=== PATIENT | female | born 1985 | race American Indian/Alaskan Native ===

== ENCOUNTER 2020-06-05 11:29 | Emergency (ER) | payer MEDICAID, OTHER ==
[2020-06-05 11:36] VITALS: BP 143/94
--- NOTE | 2020-06-05 14:13 | Emergency Department Report ---
ED Asthma HPI - General Chief Complaint: Adult Asthma Stated Complaint: ASTHMA Time Seen by Provider: 06/05/20 14:05 Source: patient Mode of arrival: Ambulatory Limitations: No Limitations - History of Present Illness Initial Comments: 34-year-old -Togolese female presents to the emergency room stating she is having intermittent asthma flareups. Patient states that she tried to go to her primary care office with did not have anything available till July. Patient states that she is almost out of her albuterol inhaler and has been using it more than usual. Patient denies any fever chills no chest pain no lightheadedness no nausea no vomiting or diarrhea. Onset/Timin -: week(s) Asthma History: childhood onset, history of prior ED visit Treatments Prior to Arrival: inhaled bronchodilator - Related Data Current Asthma Therapy: inhaled bronchodilator Previous Rx's Medication Instructions Recorded Last Taken Type Albuterol Sulfate [Proventil Hfa] 6.7 gm IH TID PRN #1 hfa.aer.ad 05/01/20 Unknown Rx Albuterol Sulfate [Albuterol 0.63% 0.63 mg IH TID PRN 1 Days #1 box 06/05/20 Unknown Rx NEBS] Albuterol Sulfate [Proair 90 mcg IH QID PRN #1 aer.pow.ba 06/05/20 Unknown Rx Respiclick] Beclomethasone Dipropionate [Qvar 10.6 gm IH BID 1 Days #1 hfa.aeroba 06/05/20 Unknown Rx Redihaler] Prednisone [predniSONE 10 mg 10 mg PO .TAPER #1 tab.ds.pk 06/05/20 Unknown Rx (6-Day Pack, 21 Tabs)] Allergies Allergy/AdvReac Type Severity Reaction Status Date / Time No Known Allergies Allergy Unverified 05/01/20 09:56 ED Review of Systems ROS: Stated complaint: ASTHMA Other details as noted in HPI Comment: All other systems reviewed and negative ED Past Medical Hx - Past Medical History Hx Asthma: Yes - Surgical History Past Surgical History?: No - Social History Smoking Status: Never Smoker - Medications Home Medications: Home Medications Medication Instructions Recorded Confirmed Last Taken Type Albuterol Sulfate [Proventil Hfa] 6.7 gm IH TID PRN #1 hfa.aer.ad 05/01/20 Unknown Rx Albuterol Sulfate [Albuterol 0.63% 0.63 mg IH TID PRN 1 Days #1 box 06/05/20 Unknown Rx NEBS] Albuterol Sulfate [Proair 90 mcg IH QID PRN #1 aer.pow.ba 06/05/20 Unknown Rx Respiclick] Beclomethasone Dipropionate [Qvar 10.6 gm IH BID 1 Days #1 hfa.aeroba 06/05/20 Unknown Rx Redihaler] Prednisone [predniSONE 10 mg 10 mg PO .TAPER #1 tab.ds.pk 06/05/20 Unknown Rx (6-Day Pack, 21 Tabs)] ED Physical Exam - General Limitations: No Limitations General appearance: alert, in no apparent distress - Head Head exam: Present: atraumatic, normocephalic - Eye Eye exam: Present: normal appearance - ENT ENT exam: Present: mucous membranes moist - Neck Neck exam: Present: normal inspection - Respiratory Respiratory exam: Present: normal lung sounds bilaterally. Absent: respiratory distress, wheezes, chest wall tenderness, accessory muscle use - Cardiovascular Cardiovascular Exam: Present: tachycardia - GI/Abdominal GI/Abdominal exam: Present: soft, normal bowel sounds - Neurological Exam Neurological exam: Present: alert, oriented X3, normal gait - Psychiatric Psychiatric exam: Present: normal affect, normal mood - Skin Skin exam: Present: warm, dry, intact, normal color. Absent: rash ED Course Vital Signs 06/05/20 11:33 Temperature 98.1 F Pulse Rate 100 H Respiratory 8 L Rate Blood Pressure 143/94 O2 Sat by Pulse 97 Oximetry ED Medical Decision Making - Medical Decision Making 34-year-old -Togol[place] female presents to the emergency room stating she is having intermittent asthma flareups. Patient states that she tried to go to her primary care office with did not have anything available till July. Patient states that she is almost out of her albuterol inhaler and has been using it more than usual. Patient denies any fever chills no chest pain no lightheadedness no nausea no vomiting or diarrhea. Discussed with patient that her lung exam is within normal limits. I discussed the patient I will will refill her medications and placed on a steroid pack and a maintenance inhaler. I discussed with patient that she needs to follow-up with a primary care provider. I have listed several below for her convenience. Critical care attestation.: If time is entered above; I have spent that time in minutes in the direct care of this critically ill patient, excluding procedure time. ED Disposition Clinical Impression: Asthma Qualifiers: Asthma severity: mild Asthma persistence: intermittent Asthma complication type: unspecified Qualified Code(s): J45.20 - Mild intermittent asthma, uncomplicated Disposition: TO HOME OR SELFCARE Is pt being admited?: No Does the pt Need Aspirin: No Condition: Stable Instructions: Asthma (ED) Additional Instructions: Please complete prednisone as prescribed use your Qvar inhaler as prescribed take your albuterol as needed. Follow-up with a primary care provider. Prescriptions: Albuterol Sulfate [Albuterol 0.63% NEBS] 0.63 mg IH TID PRN 1 Days #1 box PRN Reason: Wheezing Prednisone [predniSONE 10 mg (6-Day Pack, 21 Tabs)] 10 mg PO .TAPER #1 tab.ds.pk Albuterol Sulfate [Proair Respiclick] 90 mcg IH QID PRN #1 aer.pow.ba PRN Reason: Wheezing Beclomethasone Dipropionate [Qvar Redihaler] 10.6 gm IH BID 1 Days #1 hfa.aeroba Referrals: PRIMARY MD ANA M [Primary Care Provider] - 3-5 Days DEBBY ARRINGTON MD [Referring] - 3-5 Days MESSI KENNEDY JR, MD [Staff Physician] - 3-5 Days CHRISTOPHER MARTINEZ MD [Staff Physician] - 3-5 Days
== END 2020-06-05 15:22 | disposition home or self-care (01) ==
LOC: ED 11:29
DX: J45.909 Unspecified asthma, uncomplicated (principal); Z79.899 Other long term (current) drug therapy
CPT/HCPCS: 99281

== ENCOUNTER 2020-09-29 13:25 | Emergency (ER) | payer MEDICAID | END 2020-09-29 15:00 | disposition left against medical advice (07) | LOC: ED 13:25 | DX: R06.00 Dyspnea, unspecified (principal); Z53.21 Procedure and treatment not carried out due to patient leaving prior to being seen by health care provider ==

== ENCOUNTER 2020-12-30 10:58 | Emergency (ER) | payer MEDICAID ==
[2020-12-30 11:22] VITALS: BP 148/101
--- NOTE | 2020-12-30 11:26 | Emergency Department Report ---
Chief Complaint: Medical Clearance Stated Complaint: ABUETEROL SOLUTION INHALER - HPI History of Present Illness: 35-year-old -[place] female presents to the emergency room requesting refills on her albuterol inhaler and nebulizer treatment. Patient states she has been out of it for a week. Patient denies any shortness of breath wheezing or any distress at this time. Patient states she has been trying to get it filled at her primary care provider which is the [place] but not having much success. - Exam Physical Exam: Gen: alert oriented NAD Cardic: regular rate and rhythm no murmurs appreciated Resp: Clear to auscultation bilateral no wheezing no rales or rhonchi. Abdomen: Soft nontender nondistended normal bowel sounds. Ambulatory without difficulties MSE screening note: Focused history and physical exam performed. Due to findings the following was ordered: 35-year-old -[place] female presents to the emergency room requesting refills on her albuterol inhaler and nebulizer treatment. Patient states she has been out of it for a week. Patient denies any shortness of breath wheezing or any distress at this time. Patient states she has been trying to get it filled at her primary care provider which is the [place] but not having much success. Referral to urgent care and her primary care provider for patient. ED Disposition for MSE Disposition: Z- MED SCREENING EXAM-LEFT Is pt being admited?: No Does the pt Need Aspirin: No Condition: Stable Additional Instructions: Discussed with patient that she will need to follow-up at her urgent care or primary care clinic for refills on her albuterol medication. Patient is stable at this time. Referrals: CHRISTOPHER MARTINEZ MD [Staff Physician] - 3-5 Days
== END 2020-12-30 11:31 | disposition left against medical advice (07) ==
LOC: ED 10:58
DX: Z76.0 Encounter for issue of repeat prescription (principal); Z53.21 Procedure and treatment not carried out due to patient leaving prior to being seen by health care provider

== ENCOUNTER 2022-01-10 08:29 | Emergency (ER) | payer MEDICAID ==
[2022-01-10 08:52] VITALS: BP 143/88
--- NOTE | 2022-01-10 09:41 | XRay Report ---
LEFT KNEE 4 VIEW(S) INDICATION / CLINICAL INFORMATION: pain sp fall COMPARISON: None available. FINDINGS: BONES / JOINT(S): No acute fracture or subluxation. No significant arthritis. SOFT TISSUES: No significant abnormality. ADDITIONAL FINDINGS: None. Signer Name: Stu Tate MD Signed: 01/10/2022 9:36 AM Workstation Name: [id number]
--- NOTE | 2022-01-10 09:46 | Emergency Department Report ---
ED Lower Extremity HPI - General Chief Complaint: Extremity Injury, Lower Stated Complaint: KNEE TROUBLE Time Seen by Provider: 01/10/22 08:58 Source: patient Mode of arrival: Ambulatory Limitations: No Limitations - History of Present Illness Initial Comments: Patient is a 36-year-old -Tajik female that comes to the ER complaining of left knee pain. This occurred after she fell. She reports a popping sensation. She is ambulatory to the ER. Neurovascularly intact. Patient denies any other injury. She is taking [id number] pain medicines at home with no relief. MD Complaint: knee injury -: Gradual, days(s) Injury: Knee: Left Type of Injury: blunt Place: home Severity: mild Improves With: nothing Worsens With: movement Context: direct blow Associated Symptoms: snap/pop sensation, swelling - Related Data Previous Rx's Medication Instructions Recorded Last Taken Type Albuterol Sulfate [Proventil Hfa] 6.7 gm IH TID PRN #1 hfa.aer.ad 05/01/20 Unknown Rx Albuterol Sulfate [Albuterol 0.63% 0.63 mg IH TID PRN 1 Days #1 box 06/05/20 Unknown Rx NEBS] Albuterol Sulfate [Proair 90 mcg IH QID PRN #1 aer.pow.ba 06/05/20 Unknown Rx Respiclick] Beclomethasone Dipropionate [Qvar 10.6 gm IH BID 1 Days #1 hfa.aeroba 06/05/20 Unknown Rx Redihaler] Prednisone [predniSONE 10 mg 10 mg PO .TAPER #1 tab.ds.pk 06/05/20 Unknown Rx (6-Day Pack, 21 Tabs)] Allergies Allergy/AdvReac Type Severity Reaction Status Date / Time aspirin AdvReac Anaphylaxis Verified 01/10/22 08:52 ED Review of Systems ROS: Stated complaint: KNEE TROUBLE Other details as noted in HPI Comment: All other systems reviewed and negative ED Past Medical Hx - Past Medical History Previous Medical History?: Yes Hx Asthma: Yes - Surgical History Past Surgical History?: No - Family History Family history: no significant - Social History Smoking Status: Never Smoker Substance Use Type: None - Medications Home Medications: Home Medications Medication Instructions Recorded Confirmed Last Taken Type Albuterol Sulfate [Proventil Hfa] 6.7 gm IH TID PRN #1 hfa.aer.ad 05/01/20 Unknown Rx Albuterol Sulfate [Albuterol 0.63% 0.63 mg IH TID PRN 1 Days #1 box 06/05/20 Unknown Rx NEBS] Albuterol Sulfate [Proair 90 mcg IH QID PRN #1 aer.pow.ba 06/05/20 Unknown Rx Respiclick] Beclomethasone Dipropionate [Qvar 10.6 gm IH BID 1 Days #1 hfa.aeroba 06/05/20 Unknown Rx Redihaler] Prednisone [predniSONE 10 mg 10 mg PO .TAPER #1 tab.ds.pk 06/05/20 Unknown Rx (6-Day Pack, 21 Tabs)] ED Physical Exam - General Limitations: No Limitations General appearance: alert, in no apparent distress - Head Head exam: Present: atraumatic, normocephalic - Eye Eye exam: Present: normal appearance - ENT ENT exam: Present: mucous membranes moist - Neck Neck exam: Present: normal inspection - Respiratory Respiratory exam: Present: normal lung sounds bilaterally. Absent: respiratory distress - Cardiovascular Cardiovascular Exam: Present: regular rate, normal rhythm. Absent: systolic murmur, diastolic murmur, rubs, gallop - GI/Abdominal GI/Abdominal exam: Present: soft, normal bowel sounds - Extremities Exam Extremities exam: Present: normal inspection - Expanded Lower Extremity Exam Left Knee exam: Present: swelling, effusion - Back Exam Back exam: Present: normal inspection - Neurological Exam Neurological exam: Present: alert, oriented X3 - Psychiatric Psychiatric exam: Present: normal affect, normal mood - Skin Skin exam: Present: warm, dry, intact, normal color. Absent: rash ED Course Vital Signs 01/10/22 08:50 Temperature 98.8 F Pulse Rate 99 H Respiratory 16 Rate Blood Pressure 143/88 [Left] O2 Sat by Pulse 98 Oximetry ED Lower Extremity MDM - Radiology Data Radiology results: report reviewed, image reviewed nap - Medical Decision Making X-ray normal. Patient neurovascularly intact. Full range of motion of the knee. Patient does have small effusion of the left knee. Immobilizer and crutches. Patient being discharged home with discharge plan of care including diet, activity, medications and follow-up. She understands she needs to see orthopedics for further evaluation. Vital Signs 01/10/22 08:50 Temperature 98.8 F Pulse Rate 99 H Respiratory 16 Rate Blood Pressure 143/88 [Left] O2 Sat by Pulse 98 Oximetry - Differential Diagnosis ro fx Critical care attestation.: If time is entered above; I have spent that time in minutes in the direct care of this critically ill patient, excluding procedure time. ED Disposition Clinical Impression: Fall Qualifiers: Encounter type: initial encounter Qualified Code(s): W19.XXXA - Unspecified fall, initial encounter Knee pain Qualifiers: Chronicity: acute Laterality: left Qualified Code(s): M25.562 - Pain in left knee Disposition: 01 HOME / SELF CARE / HOMELESS Is pt being admited?: No Does the pt Need Aspirin: No Condition: Stable Instructions: Acute Knee Pain, Adult Additional Instructions: alternate ice/warm compresses crutches/immobilizer for stability The immobilizer can come off for shower/bathing. But it should be used during the daytime hours when you are up and about. over the counter Motrin and Tylenol for pain Follow-up with Dr. Lemos or an orthopedic doctor to evaluate your knee further. A referral has been given below. Referrals: HUBER SINGH MD [Primary Care Provider] - 3-5 Days PATTIE LEMOS MD [Staff Physician] - 3-5 Days Forms: Work/School Release Form(ED) Time of Disposition: 09:56
== END 2022-01-10 10:49 | disposition home or self-care (01) ==
LOC: ED 08:29
DX: M25.562 Pain in left knee (principal); J45.909 Unspecified asthma, uncomplicated; Z88.6 Allergy status to analgesic agent; W19.XXXA Unspecified fall, initial encounter; Y93.89 Activity, other specified; Y92.89 Other specified places as the place of occurrence of the external cause; Y99.8 Other external cause status
CPT/HCPCS: 99283